=== PATIENT | female | born 1945 ===

== ENCOUNTER 2018-03-14 11:44 | Emergency (ER) | payer MEDICAID ==
[2018-03-14 12:15] VITALS: BMI 27.4
--- NOTE | 2018-03-14 12:30 | ED PDOC ---
Arrival/HPI - General Chief Complaint: Lower Extremity Problem/Injury Time Seen by Provider: 03/14/18 11:48 Historian: Patient - History of Present Illness Narrative History of Present Illness (Text): 03/14/18 14:09 72yo female with pmhx of diabetes, hypertension, hyperlipdemia Mosotho speaking bib the daughter for complaint of left posterior knee pain that radiates down to her posterior foot x 2weeks. The daughter recent travel. States she came back from 2weeks ago. States that she did not take any analgesic. Denies SOB, chest pain, diaphoresis, nausea, vomiting, dizziness, any other complaint. Past Medical History - Provider Review Nursing Documentation Reviewed: Yes - Infectious Disease Hx of Infectious Diseases: None - Reproductive Menopause: No - Cardiac Hx Hypertension: Yes Hx Pacemaker: No - Neurological Hx Paralysis: No - Endocrine/Metabolic Hx Endocrine Disorders: Yes Hx Diabetes Mellitus Type 2: Yes - Hematological/Oncological Hx Blood Transfusions: No - Musculoskeletal/Rheumatological Hx Musculoskeletal Disorders: Yes - Psychiatric Hx Emotional Abuse: No Hx Physical Abuse: No Hx Substance Use: No - Surgical History Hx Hysterectomy: Yes Other/Comment: tummy tuck - Anesthesia Hx Anesthesia: Yes Hx Anesthesia Reactions: No Hx Malignant Hyperthermia: No - Suicidal Assessment Feels Threatened In Home Enviroment: No Family/Social History - Physician Review Nursing Documentation Reviewed: Yes Family/Social History: Unknown Family HX Smoking Status: Never Smoked Hx Alcohol Use: No Hx Substance Use: No Allergies/Home Meds Allergies/Adverse Reactions: Allergies No Known Allergies Allergy (Verified 12/30/15 12:46) Home Medications: Home Meds Medication Instructions Recorded Confirmed Celecoxib [celeBREX] 100 mg PO DAILY 12/08/14 12/30/15 Cyclobenzaprine HCl [Flexeril] 10 mg PO DAILY 12/08/14 12/30/15 Enalapril Maleate 20 mg PO DAILY 12/08/14 12/30/15 Furosemide [Lasix] 40 mg PO DAILY PRN 12/08/14 12/30/15 Multivit,Iron,Min 5/Folic Acid 1 tab PO DAILY 12/08/14 12/30/15 [Strovite Forte] Saxagliptin HCl/Metformin HCl 1 tab PO BID 12/08/14 12/30/15 [Kombiglyze Xr 1000 mg-2.5 mg] Simvastatin 10 mg PO DAILY 12/08/14 12/30/15 Alendronate [Fosamax] 70 mg PO Sat12/13/14 12/30/15 Ergocalciferol (Vitamin D2) 50,000 iu PO Sat12/13/14 12/30/15 [Vitamin D] Liraglutide [Victoza] 6 mg SC 12/13/14 12/30/15 Naproxen 500 mg PO DAILY PRN 12/13/14 12/30/15 Review of Systems - Physician Review All systems were reviewed & negative as marked: Yes - Review of Systems Constitutional: Normal Eyes: Normal ENT: Normal Respiratory: Normal Cardiovascular: Normal Gastrointestinal: Normal Genitourinary Female: Normal Musculoskeletal: Arthralgias (Left lower leg) Skin: Normal Neurological: Normal Endocrine: Normal Hemo/Lymphatic: Normal Psychiatric: Normal Physical Exam Vital Signs Reviewed: Yes Vital Signs Temp Pulse Resp BP Pulse Ox 03/14/18 12:08 98.8 F 100 H 20 151/88 H 98 Temperature: Afebrile Blood Pressure: Normal Pulse: Regular Respiratory Rate: Normal Appearance: Positive for: Well-Appearing, Non-Toxic, Comfortable Pain Distress: None Mental Status: Positive for: Alert and Oriented X 3 - Systems Exam Head: Present: Atraumatic, Normocephalic Pupils: Present: PERRL Extroacular Muscles: Present: EOMI Conjunctiva: Present: Normal Mouth: Present: Moist Mucous Membranes Neck: Present: Normal Range of Motion Respiratory/Chest: Present: Clear to Auscultation, Good Air Exchange. No: R espiratory Distress, Accessory Muscle Use Cardiovascular: Present: Regular Rate and Rhythm, Normal S1, S2. No: Murmurs Abdomen: No: Tenderness, Distention, Peritoneal Signs Back: Present: Normal Inspection Upper Extremity: Present: Normal Inspection. No: Cyanosis, Edema Lower Extremity: Present: CALF TENDERNESS (Left leg), NORMAL PULSES, Normal ROM, Tenderness (Posterior left knee), Neurovascularly Intact. No: Edema, Swelling, Erythema, Temperature Abnormalties Neurological: Present: GCS=15, CN II-XII Intact, Speech Normal Skin: Present: Warm, Dry, Normal Color. No: Rashes Psychiatric: Present: Alert, Oriented x 3, Normal Insight, Normal Concentration Medical Decision Making ED Course and Treatment: 03/14/18 14:17 72yo female in ED for left lower leg pain. she reported history of recent travel and Doppler US was ordered to r/o DVT. she also have posterior foot pain and foot xray was ordered Left foot xray - Left Doppler US - No DVT Left knee - DJD. No acute finding. - RAD Interpretation Radiology Orders: 03/14/18 12:18 DUPLEX LOWER EXTRM VEIN LEFT [US] Stat 03/14/18 12:19 FOOT LEFT 3 VIEWS ROUTINE [RAD] Stat KNEE WITH PATELLA LEFT 3 VIEW [RAD] Stat Disposition/Present on Arrival - Present on Arrival Any Indicators Present on Arrival: No History of DVT/PE: No History of Uncontrolled Diabetes: No Urinary Catheter: No History of Decub. Ulcer: No History Surgical Site Infection Following: None - Disposition Have Diagnosis and Disposition been Completed?: Yes Diagnosis: Left leg pain Disposition: HOME/ ROUTINE Disposition Time: 14:20 Patient Plan: Discharge Condition: STABLE Discharge Instructions (ExitCare): Muscle and Bone Pain (DC) Additional Instructions: Follow up with your Doctor Return to ED for any new or worsening symptoms Prescriptions: traMADol [Ultram] 50 mg PO Q6 #9 tab Referrals: Isabella Moon MD [Primary Care Provider] - Follow up with primary Violeta Waite DPM [Staff Provider] - Follow up with primary Forms: [employer] ([employer])
--- NOTE | 2018-03-14 14:06 | RAD ---
PROCEDURE: Left Knee Radiographs. HISTORY: Knee pain COMPARISON: No prior. FINDINGS: BONES: No acute displaced fracture. Degenerative changes including tenting of the intercondylar notch. JOINTS: No dislocation. Tricompartmental joint space narrowing. JOINT EFFUSION: No significant joint effusion. OTHER FINDINGS: Vascular calcifications. IMPRESSION: Degenerative changes.
--- NOTE | 2018-03-14 14:11 | RAD ---
Date of service: 03/14/2018 Indication: foot pain Left foot radiographs Comparison: None available Findings: Images are obtained through a sock with radiopaque circular designs which limits evaluation. Marked degenerative changes at the distal 1st MTP with subtle lucencies; nondisplaced fracture cannot be excluded; correlate with physical exam. Degenerative changes of the midfoot with osteophyte formation. Vascular calcifications. The remainder of the visualized osseous structures without acute displaced fracture. Soft tissues appear unremarkable. Impression: Limited study as above. Marked degenerative change at the distal 1st MTP with subtle linear lucencies, possibly vascular grooves and degenerative changes. Recommend correlation with physical exam is nondisplaced fracture cannot be excluded. Degenerative changes.
[2018-03-14 14:12] VITALS: RESP 18
[2018-03-14 15:06] VITALS: BP 157/89; PULSE 98; TEMP 98; O2SAT 99
--- NOTE | 2018-03-14 19:17 | US ---
PROCEDURE: Left lower extremity venous US HISTORY: Leg pain and swelling. Evaluate for DVT. PHYSICIAN(S): Venancio Khoury MD. TECHNIQUE: Duplex sonography and color-flow Doppler with graded compression were used to evaluate the deep venous system of the left lower extremity. FINDINGS: The visualized deep venous system of the left lower extremity is sonographically normal and compressible. Normal wave forms and augmentation are seen. There is no sonographic evidence for deep venous thrombosis in the visualized segments of the left lower extremity. IMPRESSION: 1. No sonographic evidence for deep venous thrombosis in the visualized segments of the left lower extremity.
== END 2018-03-14 14:42 | disposition home or self-care (01) ==
LOC: ED 11:44
DX: M79.662 Pain in left lower leg (principal); I10 Essential (primary) hypertension; E11.9 Type 2 diabetes mellitus without complications

== ENCOUNTER 2018-08-16 18:56 | Emergency (ER) | payer MEDICAID ==
[2018-08-16 18:56] VITALS: BMI 42.9
[2018-08-16 19:19] VITALS: TEMP 98.1
--- NOTE | 2018-08-16 20:12 | ED PDOC ---
Arrival/HPI - General Chief Complaint: Trauma Time Seen by Provider: 08/16/18 19:10 Historian: Family (Son) - History of Present Illness Narrative History of Present Illness (Text): 08/16/18 20:12 72 year old F with pmh of hypertension, hyperlipidemia, and diabetes presents for evaluation after mechanical fall and complaining of L. knee discomfort. Per son, patient was walking when she tripped and fell forward injuring her L. knee, L. rib cage and nose. Per son, patient can still ambulate. Patient denies any LOC, dizziness, fevers, chills, headache, chest pain, shortness of breath, dyspnea on exertion, cough, diaphoresis, abdominal pain, nausea, vomiting, diarrhea, back pain, or any other complaint. Time/Duration: Prior to Arrival Symptom Onset: Sudden Symptom Course: Unchanged Activities at Onset: Light Context: Walking Past Medical History - Provider Review Nursing Documentation Reviewed: Yes - Infectious Disease Hx of Infectious Diseases: None - Cardiac Hx Cardiac Disorders: Yes Hx Hypertension: Yes Hx Pacemaker: No - Neurological Hx Paralysis: No - Endocrine/Metabolic Hx Endocrine Disorders: Yes Hx Diabetes Mellitus Type 2: Yes - Hematological/Oncological Hx Blood Transfusions: No - Musculoskeletal/Rheumatological Hx Musculoskeletal Disorders: Yes - Psychiatric Hx Emotional Abuse: No Hx Physical Abuse: No Hx Substance Use: No - Surgical History Hx Hysterectomy: Yes Other/Comment: tummy tuck - Anesthesia Hx Anesthesia: Yes Hx Anesthesia Reactions: No Hx Malignant Hyperthermia: No - Suicidal Assessment Feels Threatened In Home Enviroment: No Family/Social History - Physician Review Nursing Documentation Reviewed: Yes Family/Social History: No Known Family HX Smoking Status: Never Smoked Hx Alcohol Use: No Hx Substance Use: No Allergies/Home Meds Allergies/Adverse Reactions: Allergies No Known Allergies Allergy (Verified 12/30/15 12:46) Home Medications: Home Meds Medication Instructions Recorded Confirmed Celecoxib [celeBREX] 100 mg PO DAILY 12/08/14 12/30/15 Cyclobenzaprine HCl [Flexeril] 10 mg PO DAILY 12/08/14 12/30/15 Enalapril Maleate 20 mg PO DAILY 12/08/14 12/30/15 Furosemide [Lasix] 40 mg PO DAILY PRN 12/08/14 12/30/15 Multivit,Iron,Min 5/Folic Acid 1 tab PO DAILY 12/08/14 12/30/15 [Strovite Forte] Saxagliptin HCl/Metformin HCl 1 tab PO BID 12/08/14 12/30/15 [Kombiglyze Xr 1000 mg-2.5 mg] Simvastatin 10 mg PO DAILY 12/08/14 12/30/15 Alendronate [Fosamax] 70 mg PO Sat12/13/14 12/30/15 Ergocalciferol (Vitamin D2) 50,000 iu PO Sat12/13/14 12/30/15 [Vitamin D] Liraglutide [Victoza] 6 mg SC HS 12/13/14 12/30/15 Naproxen 500 mg PO DAILY PRN 12/13/14 12/30/15 Review of Systems - Physician Review All systems were reviewed & negative as marked: Yes - Review of Systems Constitutional: Normal Eyes: Normal ENT: Other (Nose trauma) Respiratory: Normal Cardiovascular: Normal Gastrointestinal: Normal Genitourinary Female: Normal Musculoskeletal: Arthralgias (L. knee) Skin: Normal Neurological: Normal. absent: Dizziness Endocrine: Normal Hemo/Lymphatic: Normal Psychiatric: Normal Physical Exam Vital Signs Reviewed: Yes Vital Signs Temp Pulse Resp BP Pulse Ox 08/16/18 19:19 98.1 F 113 H 22 124/74 95 Temperature: Afebrile Blood Pressure: Normal Pulse: Tachycardic Respiratory Rate: Normal Appearance: Positive for: Well-Appearing, Non-Toxic, Comfortable Pain Distress: Mild Mental Status: Positive for: Alert and Oriented X 3 - Systems Exam Head: Present: Normocephalic Pupils: Present: PERRL Extroacular Muscles: Present: EOMI Conjunctiva: Present: Normal Ears: Present: Normal Mouth: Present: Moist Mucous Membranes Nose (External): Present: Other (Ecchymosis on nasal bridge). No: Atraumatic Neck: Present: Normal Range of Motion. No: MIDLINE TENDERNESS, Paraspinal Tenderness Respiratory/Chest: Present: Clear to Auscultation, Good Air Exchange. No: Respiratory Distress, Accessory Muscle Use Cardiovascular: Present: Tachycardic. No: Murmurs Abdomen: Present: Other (Ribs: midline tenderness L. mid lateral. No rib crepitus). No: Tenderness, Distention, Peritoneal Signs Upper Extremity: Present: Normal Inspection. No: Cyanosis, Edema Lower Extremity: Present: Other (Tenderness to L. anterior knee patella. Slight discomfort during left knee flexion. No laxity on L. knee. Full ROM ). No: Edema Neurological: Present: GCS=15, Speech Normal Skin: Present: Warm, Dry, Normal Color. No: Rashes Psychiatric: Present: Alert, Oriented x 3, Normal Insight, Normal Concentration Medical Decision Making ED Course and Treatment: 08/16/18 20:27 Impression: 72 year old F presents for evaluation after mechanical fall and complaining of L. knee discomfort Differential Diagnosis included but are not limited to: --Rib fracture --Nasal Fracture --Knee fracture Plan: --Knee X-Ray --Nasal bone X-Ray --Left ribs & PA Chest X-Ray -- Reassess and disposition Prior Visits: Notes and results from previous visits were reviewed. Progress Notes: 08/16/18 23:15 Left ribs & PA CXR Impression: As read by me, No acute process. Knee X-Ray Impression: As read by me, negative. Nasal bone X-Ray Impression: As read by me, nasal fracture EXAM: CT Abdomen and Pelvis with IV contrast Electronically signed on Aug 17, 2018 2:42:33 AM EDT by: Felicity Washington M.D IMPRESSION: 1. The visualized heart is mildly enlarged. 2. There is mild diffuse fatty infiltration of liver. 3. The gallbladder is moderately distended, measuring approximately 8.2 x 4.1 cm. Please correlate clinically and if indicated this could be further evaluated with right upper quadrant sonogram or HIDA scan. 4. There is questionable wall thickening versus underdistention of the rectum. Please correlate clinically and if indicated this could be further evaluated wi colonoscopy. 5. There is constipation in the proximal colon. 6. Additional incidental and nonemergent findings as described above. 08/17/18 04:05 On re-evaluation, patient is in no acute distress. I have discussed the results and plan with the patient, who expresses understanding. Patient in agreement with plan to be discharged home. Patient is stable for discharge. Patient was instructed to follow up with physician or return if symptoms worsen or new concerning symptoms arise. - RAD Interpretation Radiology Orders: 08/16/18 19:24 NASAL BONES [RAD] Stat RIBS LEFT & PA CHEST [RAD] Stat 08/16/18 19:25 KNEE WITH PATELLA LEFT 3 VIEW [RAD] Stat Maintenance Custodian: ED Physician, Radiologist - PA / SPECIAL EDUCATION PARA PROFESSIONAL / Resident Statement / has reviewed & agrees with the documentation as recorded. - Scribe Statement The provider has reviewed the documentation as recorded by the Feliz Kaiser All medical record entries made by the Feliz were at my direction and personally dictated by me. I have reviewed the chart and agree that the record accurately reflects my personal performance of the history, physical exam, medical decision making, and the department course for this patient. I have also personally directed, reviewed, and agree with the discharge instructions and disposition. Disposition/Present on Arrival - Present on Arrival Any Indicators Present on Arrival: No History of DVT/PE: No History of Uncontrolled Diabetes: No Urinary Catheter: No History of Decub. Ulcer: No History Surgical Site Infection Following: None - Disposition Have Diagnosis and Disposition been Completed?: Yes Diagnosis: Nasal fracture, Knee sprain, Rib contusion Disposition: HOME/ ROUTINE Disposition Time: 03:55 Patient Plan: Discharge Patient Problems: Current Active Problems Problem Status Onset Knee sprain Acute Nasal fracture Acute Rib contusion Acute Condition: STABLE Discharge Instructions (ExitCare): Contusion (DC), Knee Sprain (DC), Nose Fracture (DC), Bruised Rib (DC) Additional Instructions: Rest/No strenuous physical activity/use knee immobilizer/crutches/take meds as prescribed/follow up with the orthopedist and ear/nose/throat(ENT) doctors this week Prescriptions: Tramadol HCl [Ultram] 50 mg PO Q6 PRN #16 tab PRN Reason: Pain, Moderate (4-7) Referrals: Isabella Moon MD [Primary Care Provider] - Follow up with primary JoseE lias Wellington III, MD [Medical Doctor] - Follow up with primary Arslan Pepe DO [Staff Provider] - Follow up with primary Forms: [employer] (Hungarian)
[2018-08-16] MEDS ORDERED: TraMADol/Apap 37.5/325 mg Tab PO STA (20:39)
[2018-08-16] MEDS ORDERED: Morphine 2 mg/ml ISec IVP STA (23:03)
[2018-08-16] MEDS ORDERED: Sodium Chloride 0.9% 1,000 ML IV SCH (23:15)
[2018-08-16 23:45] LABS: HEMOGLOBIN 13.5 g/dL (12.0-16.0); MEAN CELL VOLUME 92.7 fl (80.0-105.0); MEAN CORPUSCULAR HEMOGLOBIN 30.8 pg (25.0-35.0); MEAN CORPUSCULAR HGB CONC 33.3 g/dl (31.0-37.0); MEAN PLATELET VOLUME 10.1 fl (7.0-11.0); RBC 4.38 10^6/uL (3.5-6.1); WHITE BLOOD COUNT 8.9 10^3/uL (4.5-11.0)
[2018-08-16 23:55] LABS: ALB/GLOB RATIO 1.4 (1.1-1.8); ALBUMIN 3.9 g/dL (3.0-4.8); ALT/SGPT 15 U/L (7-56); AST/SGOT 27 U/L (14-36); BLOOD UREA NITROGEN 13 mg/dL (7-21); CALCIUM 9.6 mg/dL (8.4-10.5); GFR NON-AFRICAN AMERICAN > 60
[2018-08-17] MEDS ORDERED: Iohexol 350 MG/100 ML VIAL ONE (01:10)
[2018-08-17 04:16] VITALS: BP 124/72; PULSE 98; RESP 16; O2SAT 100
--- NOTE | 2018-08-17 10:06 | CT ---
Date of service: 08/17/2018 PROCEDURE: CT Abdomen and Pelvis with contrast HISTORY: left upper abdominal pain/post fall COMPARISON: None available. TECHNIQUE: CT scan of the abdomen and pelvis was performed after administration of intravenous contrast. Oral contrast was not administered. Coronal and sagittal reformatted images were obtained. Contrast dose: Radiation dose: Total exam DLP = 555.31 mGy-cm. This CT exam was performed using one or more of the following dose reduction techniques: Automated exposure control, adjustment of the mA and/or kV according to patient size, and/or use of iterative reconstruction technique. FINDINGS: LOWER THORAX: There is subsegmental atelectasis in the lung bases. LIVER: Normal in size with homogeneous enhancement. Fatty liver. No gross lesion or ductal dilatation. GALLBLADDER AND BILE DUCTS: Well distended. No calcified gallstones, wall thickening or pericholecystic fluid. PANCREAS: Normal in size with homogeneous enhancement. No gross lesion or ductal dilatation. SPLEEN: Normal in size and appearance. ADRENALS: No discrete nodule. KIDNEYS AND URETERS: Normal in size with homogeneous enhancement. No hydronephrosis. No solid mass. VASCULATURE: No aortic aneurysm. There are no aortic atherosclerotic calcifications or mural plaque present. BOWEL: Evaluation of the bowel is limited in the absence of oral contrast. The small bowel loops are normal in caliber. There is moderate amount of stool in the colon. No bowel wall thickening or obstruction. APPENDIX: Normal appendix. PERITONEUM: No free fluid. No free air. LYMPH NODES: No enlarged lymph nodes. BLADDER: Well distended and normal in appearance. REPRODUCTIVE: The uterus is surgically absent. BONES: No acute fracture. Advanced multilevel degenerative disc disease. OTHER FINDINGS: None. IMPRESSION: No acute findings. A preliminary report was provided by [employer].
--- NOTE | 2018-08-17 12:07 | RAD ---
Date of service: 08/16/2018 PROCEDURE: Radiographs of Nasal Bones HISTORY: injury COMPARISON: None available. TECHNIQUE: Frontal and lateral radiographs of the nasal bones. FINDINGS: No acute displaced fracture of nasal bones visualized. No destructive lesion. The nasal soft tissues are normal. There is an S shaped nasal septum. The visualized paranasal sinuses are clear. IMPRESSION: No acute displaced nasal bone fracture visualized.
--- NOTE | 2018-08-17 12:12 | RAD ---
Date of service: 08/16/2018 PROCEDURE: Radiographs of the Chest and Left Ribs. HISTORY: injury COMPARISON: 07/27/2015. TECHNIQUE: Frontal radiograph of the chest and multiple oblique radiographs of the left ribs were obtained. 4 views obtained. FINDINGS: LEFT RIBS: No acute fracture or focal lesion visualized. LUNGS: There are low lung volumes. There is bibasilar atelectasis. PLEURA: No pneumothorax or pleural fluid. CARDIOVASCULAR: Normal cardiac size. No pulmonary vascular congestion. There are aortic atherosclerotic calcification present OTHER FINDINGS: None. IMPRESSION: No acute displaced rib fracture. Clear lungs.
--- NOTE | 2018-08-17 12:14 | RAD ---
Date of service: 08/16/2018 PROCEDURE: Left Knee Radiographs. HISTORY: Pain. COMPARISON: None. FINDINGS: BONES: There is diffuse bone demineralization. No acute displaced fracture or bone destruction. Bone alignment is normal. JOINTS: There is moderate tricompartmental degenerative osteoarthrosis with reduced joint spaces, marginal osteophytes and tibial spiking, worse in the medial compartment. JOINT EFFUSION: There is a small suprapatellar joint effusion. OTHER FINDINGS: None. IMPRESSION: No acute displaced fracture or dislocation. Moderate tricompartmental degenerative osteoarthrosis, worse in the medial compartment. Small suprapatellar joint effusion.
== END 2018-08-17 04:16 | disposition home or self-care (01) ==
LOC: ED 18:56
DX: S02.2XXA Fracture of nasal bones, initial encounter for closed fracture (principal); S20.212A Contusion of left front wall of thorax, initial encounter; S83.92XA Sprain of unspecified site of left knee, initial encounter; W01.0XXA Fall on same level from slipping, tripping and stumbling without subsequent striking against object, initial encounter; Y93.01 Activity, walking, marching and hiking; I10 Essential (primary) hypertension; E78.5 Hyperlipidemia, unspecified; E11.9 Type 2 diabetes mellitus without complications
CPT/HCPCS: 70160; 71101; 73562; 74177; 80053; 85027; 96374; 99285; J2270; J7030; Q9967